=== PATIENT | male | born 1950 | race Caucasian/White ===

== ENCOUNTER 2019-10-31 06:39 | Outpatient (CLI) | payer BC, SELFPAY ==
--- NOTE | ~2019-10-31 | XR_ITS ---
EXAMINATION: XR chest 2V DATE: 10/31/2019 06:56 INDICATION: Cough TECHNIQUE: PA and lateral views of the chest are obtained. COMPARISON: 06/15/2014 FINDINGS: The lungs are free of acute opacities. There is no pleural effusion or pneumothorax. The he art size is normal. Median sternotomy wires are consistent with prior cardiac surgery. There are thomas ges of anterior fusion procedure in the lower cervical spine. There is mild thoracic spondylosis. Bess gical clips in the right upper quadrant are likely from prior cholecystectomy. IMPRESSION: 1. No acute cardiopulmonary abnormality. Reviewed, dictated and finalized at location A.
== END 2019-10-31 06:40 | disposition home or self-care (01) ==
PROVIDERS: PCP Family Medicine; Visit Provider Physician Assistant
DX: R05 Cough (principal)
CPT/HCPCS: 71046

== ENCOUNTER 2020-01-07 07:38 | Outpatient (CLI) | payer BC, MEDICARE, SELFPAY ==
--- NOTE | 2020-01-14 15:12 | WPDPFTINT ---
PFT Interpretation PFT Interpretation: DOS: 01/07/2020 REQUESTING: Dr Galeano REASON FOR TESTING: shortness of breath PULMONARY FUNCTION TESTS Spirometry: FEV1 78%, mildly decreased, 2.35 L. FVC 70%, mildly decreased. FEV1% is normal which is consistent with absence of airflow obstruction. No bronchodilator was given. Lung volumes: Patient declined plethysmography due to shortness of breath. Diffusion: DLCO 54%, moderately decreased. Flow volume loop: Three attempts which were not reproducible. IMPRESSION: Possible ventilatory defect with decrease in FEV1; this finding may be due to restriction however no lung volumes were obtained due to patient's request. Moderate decrease in diffusion which may be due to smoking or other cause such as anemia, early ILD, chronic thromboembolic disease. Clinical correlation recommended. av Li MD
== END 2020-01-07 07:39 | disposition home or self-care (01) ==
LOC: ANHPFT 07:41
PROVIDERS: PCP Family Medicine; Visit Provider Family Medicine
DX: R06.02 Shortness of breath (principal)
CPT/HCPCS: 94375; 94729

== ENCOUNTER 2020-01-12 01:32 | Outpatient (CLI) | payer BC, MEDICARE, SELFPAY ==
[2020-01-12 16:17] LABS: SARS-CoV-2 RNA PCR Negative
== END 2020-01-12 01:33 | disposition home or self-care (01) ==
LOC: ANHCOVIDDT 01:33
PROVIDERS: PCP Family Medicine; Visit Provider Specialist
DX: Z01.812 Encounter for preprocedural laboratory examination (principal); Z20.828 Contact with and (suspected) exposure to other viral communicable diseases
CPT/HCPCS: 87635; C9803; U0003

== ENCOUNTER 2020-01-14 00:20 | Day surgery (SDC) | payer BC, MEDICARE, SELFPAY ==
[2020-01-13 15:34] VITALS: BMI 40.9
--- NOTE | 2020-01-14 | ECHO_ITS ---
Patient Info Name: Dejan Churchill Age: 69 years : 1950 Gender: Male Ht: 70 in Wt: 285 lbs BSA: 2.58 m2 HR: 93 bpm BP: 135 / 76 mmHg Heart Rhythm: Sinus Rhythm Technical Quality: Good Exam Date: 01/14/2020 10:12 AM Exam Location: [facility] Patient Status: Outpatient Admit Date: 01/14/2020 Staff Ordering Physician: Pipe Sky MD Drafter Heating And Ventilating: Carlos Harden RDCS Attending Provider: Pipe Sky MD Referring Physician: Asya NATHAN; Exam Type: CA echo transesophageal Study Info Indications I35.0 - Nonrheumatic aortic (valve) stenosis Complete two-dimensional, color flow and Doppler transesophageal study is performed. History/Risk Factors Aortic stenosis. Summary 1. Left ventricular chamber dimension is moderately enlarged. 2. Global left ventricular systolic function is reduced with ejection fraction visually estimated to be 35-40%. 3. Left atrial chamber dimension is severely enlarged. 4. There is severe aortic valve stenosis. 5. There is severe aortic valve calcification. 6. Plane imagery demonstrates a valve area of 0.9 cm2. Left Ventricle Left ventricular chamber dimension is moderately enlarged. Global left ventricular systolic function is reduced with ejection fraction visually estimated to be 35-40%. Right Ventricle Right ventricular chamber dimension is normal. Left Atria Left atrial chamber dimension is severely enlarged. Right Atria Right atrial chamber dimension is mildly enlarged. Aortic Valve The aortic valve is trileaflet. There is severe aortic valve stenosis. There is severe aortic valve calcification. Plane imagery demonstrates a valve area of 0.9 cm2. Pulmonic Valve The pulmonic valve is not well visualized. Mitral Valve The mitral valve has normal leaflets. There is mild mitral valve regurgitation. The mitral valve annulus is mildly calcified. Tricuspid Valve The tricuspid valve leaflets are normal. Pericardium/Pleural The pericardium appears normal. Inferior Vena Cava Not well visualized inferior vena cava with Empty collapse upon inspiration consistent with Empty right atrial pressure, Empty. Aortic Valve Name Value Normal AV 2D/MM AV Area (Planimetry) 0.9 cm2 Report Signatures
[2020-01-14 09:20] VITALS: BP 121/67; PULSE 98; RESP 20; TEMP 36.3; O2SAT 95
--- NOTE | 2020-01-14 10:12 | WPDANESEPPF ---
Anes - Initial Pre Proc Eval Procedure: Operation Date: 01/14/20 10:00 Proposed Procedures p Trans Esophageal Echo - Pipe Sky MD Date/Time: 01/14/20 10:12 Surgeon: Pipe Sky MD Pre Op Diagnosis: AF Patient Data Age: 69 Gender: M Height: 5 ft 10 in Weight: 129.5 kg Last Vital Signs Temp 36.3 C L 01/14/20 09:20 Pulse 98 01/14/20 09:20 Resp 20 01/14/20 09:20 BP 121/67 01/14/20 09:20 Pulse Ox 95 01/14/20 09:20 Allergies Allergy/AdvReac Type Severity Reaction Status Date / Time iodine Allergy Unknown sick Verified 11/07/19 11:07 Sulfa (Sulfonamide Allergy Unknown Skin Verified 11/07/19 11:07 Antibiotics) Reaction Home Medications Medication Instructions Recorded Confirmed Type aspirin 81 mg tablet,delayed 81 mg PO DAILY 07/22/19 01/13/20 History release levothyroxine 137 mcg capsule 137 mcg PO DAILY #90 cap 08/22/19 01/13/20 Rx simvastatin 40 mg tablet 40 mg PO DAILY #90 tablet 08/22/19 01/13/20 Rx metoprolol succinate 50 mg 50 mg PO DAILY #90 tablet 09/25/19 01/13/20 Rx tablet,extended release 24 hr losartan 50 mg tablet 100 mg PO DAILY tablet 09/26/19 01/13/20 History albuterol sulfate 90 mcg/actuation 1 puff INHALATION BID PRN #8.5 gm 10/10/19 Rx aerosol inhaler ipratropium 0.5 mg-albuterol 3 mg 3 ml INHALATION Q6H PRN #180 ml 12/29/19 01/13/20 Rx (2.5 mg base)/3 mL nebulization soln loratadine [Claritin] 10 mg PO DAILY 01/13/20 01/13/20 History Patient hx anesthesia problems: none Family hx anesthesia problems: none PMFSH Past Medical History Medical History Aortic stenosis 5-20 echo 0.93cm2 Surgical History Surgical History H/O cardiac catheterization Hx of CABG Family History Family History Mother Family history of elevated blood lipids Hypertension Family history of malignant neoplasm of breast in first degree relative Sibling Family history of cardiovascular disease Diabetes mellitus Depression Hypertension Social History Social History Smoking status: Former smoker Smoking end date: 05/14/91 Alcohol intake: never Living arrangements: with family Gender identity (if verbalized by the patient): Male Anes - Eval Final PreProcedure Day of Procedure 01/14/20 10:12 Patient weight: morbidly obese Heart: regular rate and rhythm Lungs: decreased breath sounds Airway: Mallampati scale class III Neurological: alert and oriented Last oral intake: >/= 8 hours ASA classification: IV Emergent: no Anesthetic plan: proceed Anesthesia type and monitoring: general GIVS and standard monitoring Informed Consent: The patient's anesthetic plan and its attendant risks and benefits were discussed with the patient. Questions were solicited and answers provided to the satisfaction of the patient.
[2020-01-14 10:45] VITALS: BP 121/62; PULSE 90; RESP 14; O2SAT 92
[2020-01-14 11:00] VITALS: BP 128/77; PULSE 89; RESP 25; O2SAT 94
[2020-01-14 11:15] VITALS: BP 125/74; PULSE 88; RESP 23; O2SAT 93
[2020-01-14 11:30] VITALS: BP 124/70; PULSE 88; RESP 22; O2SAT 95
--- NOTE | 2020-01-14 12:31 | SUR.PHASEII ---
1215-pt given D/C orders and instructions. Questions answered and verbalized understanding. AOx4. Taken via wheelchair to waiting vehicle. No evidence of distress noted or verbalized at time of departure.
== END 2020-01-14 12:15 | disposition home or self-care (01) ==
PROVIDERS: PCP Family Medicine; Visit Provider Specialist
PROC: (CPT 93312; principal; 2020-01-14 10:00)
DX: I35.0 Nonrheumatic aortic (valve) stenosis (principal); I25.10 Atherosclerotic heart disease of native coronary artery without angina pectoris; Z79.82 Long term (current) use of aspirin; Z95.1 Presence of aortocoronary bypass graft; Z87.891 Personal history of nicotine dependence; E66.01 Morbid (severe) obesity due to excess calories; Z68.41 Body mass index [BMI] 40.0-44.9, adult
CPT/HCPCS: 93312; 93320; 93325; J2704; J7040

== ENCOUNTER 2020-01-21 00:52 | Outpatient (CLI) | payer BC, MEDICARE, SELFPAY ==
[2020-01-21 19:21] LABS: SARS-CoV-2 RNA PCR Negative
== END 2020-01-21 00:53 | disposition home or self-care (01) ==
LOC: ANHCOVIDDT 00:52
PROVIDERS: PCP Family Medicine; Visit Provider Specialist
DX: R09.89 Other specified symptoms and signs involving the circulatory and respiratory systems (principal); Z20.828 Contact with and (suspected) exposure to other viral communicable diseases
CPT/HCPCS: 87635; C9803; U0003

== ENCOUNTER 2020-01-23 05:27 | Day surgery (SDC) | payer BC, MEDICARE, SELFPAY ==
--- NOTE | 2020-01-16 11:52 | P.PCNCC_ITS ---
Cardiac Cath Procedure Note Date of procedure:: 01/16/20 Performing physician:: Pipe Sky MD Indication:: Evaluation of aortic valve stenosis Brief clinical history:: this is a 69-year-old man with coronary disease and previous bypass grafting. He has also history of aortic valve stenosis with conflicting information regarding echocardiographic and cardiac catheterization results regarding the severity of his aortic valve disease. He is now presenting with worsening shortness of breath and ANTHONY evaluation of his aortic valve disease has been recommended and scheduled for today. Procedure Procedure performed:: Transesophageal echocardiogram Sedation/Medication given:: sedation by the anesthesia service Estimated blood loss:: no blood loss Procedure note:: patient was brought to the postanesthesia care unit where he was sedated by the anesthesia service. Following this ANTHNOY probe was placed into the oropharynx and directed into the esophagus. Esophageal echocardiogram exam was carried out including imaging of the aortic valve, direct planimetry of the aortic valve. Doppler exam of the LV outflow tract as well as of the mitral valve. The LV in left atrium or also evaluated Findings:: the patient has left atrial dilatation to a moderate degree. There was no evidence of atrial thrombus. The mitral valve leaflets are anatomically normal there is some annular calcium and modest MR. The left ventricle is of normal size is concentrically hypertrophied with global ejection fraction of 50- 55% by visual estimation. The aortic valve is a trileaflet structure which is severely calcified with bulky nodules of fibrosis and calcium and significant restriction in leaflet separation. Visually the valve appears to be severely stenotic. Direct planimetry he leave yields a valve area of 0.8 cm2. Color Doppler interrogation of the LV outflow tract demonstrates mild aortic valve regurgitation. Aortic root dimension is normal. Conclusion:: Transesophageal echocardiogram demonstrating patient has severe calcific aortic valve stenosis and mild AI. LV systolic function is normal with concentric LVH Pipe Sky MD FACC
[2020-01-22 15:59] VITALS: BMI 40.8
[2020-01-23] VITALS (17 sets, daily range): BP systolic 110–141; BP diastolic 64–86; PULSE 87–112; RESP 18–25; TEMP 36.1–36.6; O2SAT 90–100
--- NOTE | 2020-01-23 09:47 | SUR.PREOP ---
Patient took Prednisone 50 Mg and Benadryl 50 Mg at 0859 for premedication for an Iodine allergy.
[2020-01-23 09:51] LABS: Basophils Percent Auto 0.1 % (0.2-1.2); Hemoglobin 13.8 g/dL (14.0-18.0); Immature Granulocyte Absolute 0.03 K/mm3 (0.00-0.031); Immature Granulocyte Percent A 0.3 % (0-0.5); Lymphocytes Absolute Auto 0.44 K/mm3 (0.9-3.2); Lymphocytes Percent Auto 4.7 % (18.3-44.2); Mean Corpuscular HGB Conc 33.7 g/dl (32-36); Mean Corpuscular Hemoglobin 31.4 pg (26-34); Mean Corpuscular Volume 93.2 fl (80-100); Mean Platelet Volume 10.2 fl (7.4-10.4); Monocytes Absolute Auto 0.1 K/mm3 (0.1-0.6); Monocytes Percent Auto 1.1 % (2.6-8.5); Neutrophils Absolute Auto 8.8 K/mm3 (1.3-6.7); Neutrophils Percent Auto 93.8 % (45.5-73.1); Platelet Count Result 236 k/mm3 (150-375); Red Cell Distribution Width 13.2 % (11.5-14.5); White Blood Count 9.4 K/mm3 (4.5-10.0)
[2020-01-23 10:02] LABS: INR 1.1; Prothrombin Time 13.4 Seconds (11.1-14.7)
[2020-01-23 10:03] LABS: Anion Gap 11 mmol/L (8-16); Blood Urea Nitrogen 21 mg/dL (9-20); Calcium 9.3 mg/dL (8.4-10.2); Carbon Dioxide 21 mmol/L (22-30); Chloride 104 mmol/L (98-107); Estimated CRCL calculation 105 ml/min; Estimated Glomerular Filt Rate > 60; Glucose 196 mg/dL (75-110); Potassium 4.3 mmol/L (3.4-5.0); Sodium 136 mmol/L (137-145)
--- NOTE | 2020-01-23 10:24 | WPDMODSED ---
Moderate Sedation Note-Pt Data Patient Data Diagnosis: aortic valve stenosis with symptomatic exertional dyspnea coronary artery disease with previous CABG obesity Present Complaint: this is a morbidly obese 69-year-old man with coronary disease who underwent bypass grafting approximately 10 years ago. He has been experiencing increasing exertional dyspnea and has been found to have progressively severe aortic stenosis. He is now undergoing right and left heart catheterization in anticipation of cardiothoracic surgery consultation Procedure to be performed/Plan: right and left heart catheterization Allergies Allergy/AdvReac Type Severity Reaction Status Date / Time iodine Allergy Unknown sick Verified 01/22/20 16:15 Sulfa (Sulfonamide Allergy Unknown Skin Verified 01/22/20 16:15 Antibiotics) Reaction Home Medications Medication Instructions Recorded Confirmed Type aspirin 81 mg tablet,delayed 81 mg PO DAILY 07/22/19 01/22/20 History release levothyroxine 137 mcg capsule 137 mcg PO DAILY #90 cap 08/22/19 01/22/20 Rx simvastatin 40 mg tablet 40 mg PO DAILY #90 tablet 08/22/19 01/22/20 Rx metoprolol succinate 50 mg 50 mg PO DAILY #90 tablet 09/25/19 01/22/20 Rx tablet,extended release 24 hr losartan 50 mg tablet 100 mg PO DAILY tablet 09/26/19 01/22/20 History loratadine [Claritin] 10 mg PO DAILY 01/13/20 01/22/20 History albuterol sulfate 2.5 mg/0.5 mL 2.5 mg INHALATION BID PRN 30 Days 01/16/20 01/22/20 Rx solution for nebulization #60 each budesonide-formoterol HFA 160 2 puff INHALATION Q12H #10.2 gm 01/16/20 01/22/20 Rx mcg-4.5 mcg/actuation aerosol inhaler inhalational spacing device #1 each 01/16/20 01/16/20 Rx tiotropium bromide 2.5 2 inhalation INHALATION QAM #4 gm 01/16/20 01/22/20 Rx mcg/actuation mist for inhalation Current Medications: Active Medications Sodium Chloride (Normal Saline Iv) 500 mls @ 100 mls/hr IV CONT .Q5H SUNNI Sedation/Anesthesia: No previous sedation/anesthesia problems (including family history). [facility] Social History Social History Smoking status: Former smoker Tobacco type: cigarettes Smokeless tobacco user: other Second hand tobacco smoke exposure: No Smoking end date: 05/14/91 Alcohol intake: never Substance use type: does not use Living arrangements: with family Gender identity (if verbalized by the patient): Male Sexual Orientation (if Verbalized by the Patient): Straight or Heterosexual Spiritual care concerns: No Mod Sed Physical Exam Physical Exam Pre Procedural Exam: Normal: Neck, Throat, Airway, Heart Rate, Heart Rhythm, Neuro Exam and Extremities and Variation: Appearance ( obese white male with conversational dyspnea), Lungs ( breath sounds diminished in both lung arana because of obesity) and Heart Size ( PMI not palpable) Hours since solid foods: 12 Hours since liquid intake: 12 Internal Medicine - PN: Obj Da Vital Signs Vital Signs: Vital Signs - 24 hr 01/23/20 09:26 Temperature 36.6 C Pulse Rate 112 H Respiratory Rate 23 H Blood Pressure 135/84 Pulse Oximetry 94 Meds/Results Medications: Active Medications Generic Name Dose Route Start Last Admin Trade Name Freq PRN Reason Stop Dose Admin Sodium Chloride 500 mls @ 100 mls/hr 01/23/20 06:15 Normal Saline Iv IV CONT .Q5H SUNNI Labs CBC & Chem 7: 01/23/20 09:01 01/23/20 09:01 Labs: Laboratory Results - last 24 hr 01/23/20 01/23/20 01/23/20 09:01 09:01 09:01 WBC 9.4 RBC 4.40 L Hgb 13.8 L Hct 41.0 L MCV 93.2 MCH 31.4 MCHC 33.7 RDW 13.2 Plt Count 236 MPV 10.2 Immature Gran % (Auto) 0.3 Neut % (Auto) 93.8 H Lymph % (Auto) 4.7 L [place] % (Auto) 1.1 L Eos % (Auto) 0.0 Baso % (Auto) 0.1 L Lymph # (Auto) 0.44 L [place] # (Auto) 0.1 Eos # (Auto) 0.0 Baso # (Auto) 0.0 Abs Immat Gran (auto)
--- NOTE | 2020-01-23 11:47 | WPDCARDPROC ---
Cardiac Cath Procedure Note Date of procedure:: 01/23/20 Performing physician:: Pipe Sky MD Indication:: aortic valve stenosis, coronary disease, previous coronary bypass grafting, left ventricular dysfunction and significant exertional dyspnea Brief clinical history:: this is a 69-year-old patient with a history of ischemic heart disease who underwent bypass grafting in the remote past. His operation by report consisted of a BRADLEY graft to the LAD a vein graft to a ramus and a vein graft to a posterior descending artery. He had mild aortic valve stenosis at that time. The patient now reports with progressive disabling shortness of breath echo and ANTHONY appears to show evidence of critical aortic stenosis with left ventricular systolic dysfunction. Right left heart catheterization is therefore recommended in anticipation of cardiothoracic surgery consultation Procedure Procedure performed:: right and left heart catheterization Sedation/Medication given:: fentanyl 50 mg Versed 2 mg case start time 11:06 a.m. case end time 11:43 a.m. sedation provided by Sakina Hatfield RN, trained observer Access site:: right femoral artery and vein Estimated blood loss:: 20-30 cc Procedure note:: patient was brought to the cardiac catheterization lab in the postabsorptive state where the right femoral triangle was prepared and draped in usual sterile fashion. Anesthesia was provided with 1% lidocaine infiltrated locally. Using the modified Seldinger technique the femoral artery was punctured and I placed a long 45 cm 6 Congolese sheath into the descending aorta. Following this the femoral vein was punctured and I placed a 7 Congolese sheath in the femoral vein. Right heart catheterization was then carried out using a balloon tip [place] catheter to measure right-sided hemodynamics, thermodilution cardiac output and measure Adriel cardiac output with AV O2 difference. Following this the [place] catheter was removed. I then placed a 5 Congolese angled pigtail catheter in the ascending aorta. I used the side arm of the long sheath to record simultaneous pressures in the aorta and in the LV with the pigtail catheter. Following this a 0.035 straight wire was used to probe the stenotic aortic valve in the left ventricle was entered. The catheters were then flushed and simultaneous LV and aortic pressures were demonstrated. Aortic valve area was then calculated using the Adriel cardiac output. A left ventriculogram was then injected in the 30 degree BONE projection. The pigtail catheter was then withdrawn and removed. I then injected the left coronary artery using a standard 5 Congolese FL4 diagnostic catheter. The right coronary was then injected using a standard 5 Congolese JR4 catheter. This same catheter was then used to inject the saphenous vein grafts as well as the BRADLEY. Following this the cineangiograms were reviewed and the case was terminated. The patient was taken to the holding area for sheath removal. He left the bed laborer with no evidence of a groin hematoma and no evidence of any procedural complication. Findings:: Hemodynamics: The right atrial pressure is 13 mmHg. Right ventricle is 75 over 5 end-diastolic 18 pulmonary artery pressure 65 over 37 mean pulmonary wedge pressure 32. Central aortic pressure 116/62 left ventricle 192/13 end-diastolic 35. Aortic valve area has a mean gradient of 58.64 mmHg valve area calculates to be 0.60 cm2. Adriel cardiac output is 6.09 liters/minute giving an index of 2.51 Left ventricle: The LV is markedly dilated there is severe global systolic hypocontractility with global ejection fraction I would visually estimate to be 25-30%. Left main coronary artery is patent the left anterior descending is 100% occluded proximally after a small septal branch. The circumflex is moderate in size and appears to be either dominant or codominant. A medium size ramus intermedius branch has moderate disea
[2020-01-23] MEDS: SODIUM CHLORIDE 0.9% IV 1,000 ML 125 ML IV CONT (13:00)
[2020-01-23] MEDS: ONDANSETRON INJ 4 MG/2 ML VIAL IV PUSH (18:29)
--- NOTE | 2020-01-23 20:27 | PC.NURSE ---
Spoke with patient and . They state they received disk and information for Alex from Dr Sky.
--- NOTE | 2020-01-23 20:37 | PC.NURSE ---
Pt feeling better after zophran.
== END 2020-01-23 20:35 | disposition home or self-care (01) ==
LOC: ANHCATHLAB 12:14 → ANHIMU 18:21
PROVIDERS: PCP Family Medicine; Visit Provider Specialist
PROC: 4A023N8 Measurement of Cardiac Sampling and Pressure, Bilateral, Percutaneous Approach (ICD-10-PCS; CPT 93453; principal; 2020-01-23 10:00)
DX: I35.2 Nonrheumatic aortic (valve) stenosis with insufficiency (principal); I25.10 Atherosclerotic heart disease of native coronary artery without angina pectoris; I25.810 Atherosclerosis of coronary artery bypass graft(s) without angina pectoris; I27.20 Pulmonary hypertension, unspecified; I51.9 Heart disease, unspecified; E66.01 Morbid (severe) obesity due to excess calories; Z68.41 Body mass index [BMI] 40.0-44.9, adult; Z87.891 Personal history of nicotine dependence; Z79.51 Long term (current) use of inhaled steroids; Z79.82 Long term (current) use of aspirin; Z79.899 Other long term (current) drug therapy; Z88.2 Allergy status to sulfonamides
CPT/HCPCS: 36415; 80048; 85025; 85610; 93460; C1769; C1887; C1894; J1644; J2250; J2405; J3010; J7040

== ENCOUNTER 2020-04-22 07:30 | Outpatient (RCR) | payer BC, MEDICARE, SELFPAY ==
[2020-03-05 08:54] VITALS: BP 122/76; PULSE 74; RESP 16; TEMP 36.6; O2SAT 97
--- NOTE | 2020-03-17 08:21 | PCCPR ---
Absent today, not feeling well.
--- NOTE | 2020-05-03 14:56 | PCCPR ---
05/03/2020: not planning to return. Sending discharge paperwork.
== END 2020-05-03 18:35 | disposition home or self-care (01) ==
LOC: ANHCPREHAB 07:30
PROVIDERS: PCP Family Medicine; Visit Provider Specialist
DX: Z95.2 Presence of prosthetic heart valve (principal)
CPT/HCPCS: 93798

== ENCOUNTER → 2021-01-11 10:39 | Outpatient (CLI) | payer BC, MEDICARE, SELFPAY ==
--- NOTE | ~2021-01-11 | XR_ITS ---
EXAMINATION: XR chest 2V DATE: 01/11/2021 10:58 INDICATION: Cough TECHNIQUE: PA and lateral views of the chest are obtained. COMPARISON: 10/31/2019 FINDINGS: The lungs are free of acute opacities. There is no pleural effusion or pneumothorax. The he art size is normal. Changes of prior cardiac valve surgery are noted. There is moderate thoracic spon dylosis. Surgical clips in the right upper quadrant are likely from prior cholecystectomy. IMPRESSION: 1. No acute cardiopulmonary abnormality. Reviewed, dictated and finalized at location A.
== END ==
PROVIDERS: PCP Physician Assistant; Visit Provider Physician Assistant
DX: R05 Cough (principal)
CPT/HCPCS: 71046

== ENCOUNTER → 2022-03-01 09:12 | Outpatient (CLI) | payer BC, MEDICARE, SELFPAY ==
--- NOTE | ~2022-03-01 | XR_ITS ---
EXAMINATION: XR lumbar spine min 4V DATE: 03/01/2022 09:36 INDICATION: Low back pain. TECHNIQUE: 5 views of lumbar spine were obtained. COMPARISON: Chest 2 views 01/11/2021 FINDINGS: There is 3 mm anterolisthesis of L5 on S1. Vertebral body heights are normal. There are end plate osteophytes at most levels. Intervertebral disc heights are normal. There is multilevel facet j oint osteoarthritis, severe on the right from L3-L4 through L5-S1 and on the left at L4-L5 and L5-S1. IMPRESSION: 1. Mild lumbar spondylosis. Reviewed, dictated and finalized at location B. IMPRESSION: 1. Mild lumbar spondylosis.
--- NOTE | ~2022-03-01 | XR_ITS ---
EXAMINATION: XR knee RT min 4V DATE: 03/01/2022 09:36 INDICATION: Right knee pain. TECHNIQUE: 4 views of right knee were obtained. COMPARISON: None. FINDINGS: There is varus angulation at the knee. No acute fracture. There is an old healed fracture o f proximal fibular diaphysis. There is severe osteoarthritis of medial compartment, mild osteoarthrit is of lateral compartment, and moderate osteoarthritis of patellofemoral compartment. There is a smal l knee joint effusion. IMPRESSION: 1. Severe right knee osteoarthritis. 2. Small right knee joint effusion. Reviewed, dictated and finalized at location B.
== END ==
PROVIDERS: PCP Family Medicine; Visit Provider Family Medicine
DX: M47.896 Other spondylosis, lumbar region (principal); M17.11 Unilateral primary osteoarthritis, right knee; M25.461 Effusion, right knee
CPT/HCPCS: 72110; 73564

== ENCOUNTER → 2022-07-14 07:34 | Outpatient (CLI) | payer BC, MEDICARE, SELFPAY ==
--- NOTE | ~2022-07-14 | US_ITS ---
Ultrasound of the Abdominal Aorta INDICATION: Tobacco use, abdominal aortic aneurysm TECHNIQUE: Grayscale, color Doppler, and pulsed Doppler images of the aorta and common iliac arteries were obtained. COMPARISON: None. FINDINGS: Maximum vascular dimensions are as follows: Proximal aorta: 3.1 cm Mid aorta: 3.0 cm Distal aorta: 1.7 cm Right common iliac artery: 1.4 cm Left common iliac artery: 1.5 cm There is no evidence of abdominal aortic aneurysm. Exam somewhat suboptimal due to bowel gas shadowin g/patient body habitus. IMPRESSION: No abdominal aortic aneurysm identified. Reviewed, dictated and finalized at location . [employer]
== END ==
PROVIDERS: PCP Family Medicine; Visit Provider Family Medicine
DX: Z13.6 Encounter for screening for cardiovascular disorders (principal); Z87.891 Personal history of nicotine dependence
CPT/HCPCS: 76706

== ENCOUNTER 2023-08-08 07:48 | Outpatient (CLI) | payer BC, MEDICARE, SELFPAY | END 2023-08-08 07:49 | disposition home or self-care (01) | PROVIDERS: PCP Family Medicine; Visit Provider Family Medicine | DX: H90.6 Mixed conductive and sensorineural hearing loss, bilateral (principal) | CPT/HCPCS: 92557; 92567 ==

== ENCOUNTER 2023-12-25 08:30 | Outpatient (RCR) | payer BC, SELFPAY | END 2024-01-29 23:59 | disposition other institution (70) | LOC: ANHBWCAUD 08:30 | PROVIDERS: PCP Family Medicine | DX: Z46.1 Encounter for fitting and adjustment of hearing aid (principal) | CPT/HCPCS: 99199; V5256; V5257; V5264 ==